=== PATIENT | female | born 1950 | race Caucasian/White ===

== ENCOUNTER → 2024-01-02 06:29 | Day surgery (SDC) | payer MEDICARE, OTHER, SELFPAY | LOC: GI 06:29 | PROVIDERS: ATTENDING PHYSICIAN Specialist; FAMILY PHYSICIAN Physician Assistant Medical | DX: Z12.11 Encounter for screening for malignant neoplasm of colon (principal); Z80.0 Family history of malignant neoplasm of digestive organs; K59.00 Constipation, unspecified; K57.30 Diverticulosis of large intestine without perforation or abscess without bleeding; K62.89 Other specified diseases of anus and rectum; D12.3 Benign neoplasm of transverse colon | CPT/HCPCS: 45380; 88305 ==

== ENCOUNTER → 2024-02-19 16:29 | Outpatient (REF) | payer MEDICARE, OTHER, SELFPAY | LOC: RAD 16:29 | PROVIDERS: ATTENDING PHYSICIAN Student in an Organized Health Care Education/Training Program; FAMILY PHYSICIAN Physician Assistant Medical | DX: R05.9 Cough, unspecified (principal) | CPT/HCPCS: 71046 ==

== ENCOUNTER → 2024-12-09 14:41 | Outpatient (REF) | payer MEDICARE, OTHER, SELFPAY ==
[2024-12-09 16:48] LABS: Creatine Phosphokinase 101 U/L (30-135); TSH 1.49 uIU/ml (0.47-4.68)
[2024-12-09 17:24] LABS: Folate 18.4 ng/ml (2.76-20); Vitamin B12 284 pg/ml (239-931)
[2024-12-11 16:12] LABS: Aldolase 3.4 U/L (1.2-7.6)
== END ==
LOC: REG 14:41
PROVIDERS: ATTENDING PHYSICIAN Specialist; FAMILY PHYSICIAN Physician Assistant Medical
DX: R53.1 Weakness (principal); D51.8 Other vitamin B12 deficiency anemias; R20.0 Anesthesia of skin; E03.9 Hypothyroidism, unspecified
CPT/HCPCS: 36415; 82085; 82550; 82607; 82746; 84155; 84165; 84439; 84443

== ENCOUNTER → 2024-12-26 14:33 | Outpatient (REF) | payer MEDICARE, OTHER, SELFPAY | LOC: RCS 14:33 | PROVIDERS: ATTENDING PHYSICIAN Student in an Organized Health Care Education/Training Program; FAMILY PHYSICIAN Physician Assistant Medical | DX: R06.02 Shortness of breath (principal) | CPT/HCPCS: 93306 ==

== ENCOUNTER → 2025-01-15 14:06 | Outpatient (REF) | payer MEDICARE, OTHER, SELFPAY ==
[2025-01-15 15:30] LABS: Albumin 4.3 g/dl (3.5-5.0)
[2025-01-15 15:38] LABS: Prealbumin (Transthyretin) 27.8 mg/dl (17.6-36.0)
[2025-01-18 03:00] LABS: Transferrin 258 mg/dL (200-360)
== END ==
LOC: REG 14:06
PROVIDERS: ATTENDING PHYSICIAN Orthopaedic Surgery Adult Reconstructive Orthopaedic Surgery; FAMILY PHYSICIAN Physician Assistant Medical
DX: Z01.818 Encounter for other preprocedural examination (principal); E61.1 Iron deficiency; D53.9 Nutritional anemia, unspecified
CPT/HCPCS: 36415; 82040; 84134; 84466

== ENCOUNTER → 2025-02-25 10:46 | Outpatient (REF) | payer MEDICARE, OTHER, SELFPAY ==
[2025-02-25 12:19] LABS: Blood Urea Nitrogen 19 mg/dl (7-17)
== END ==
LOC: REG 10:46
PROVIDERS: ATTENDING PHYSICIAN Specialist; FAMILY PHYSICIAN Physician Assistant Medical
DX: R20.0 Anesthesia of skin (principal); G12.23 Primary lateral sclerosis; R53.1 Weakness
CPT/HCPCS: 36415; 82565; 84520

== ENCOUNTER → 2025-06-03 12:33 | Outpatient (REF) | payer MEDICARE, OTHER, SELFPAY | LOC: WDC 12:33 | PROVIDERS: ATTENDING PHYSICIAN Physician Assistant Medical | DX: Z78.0 Asymptomatic menopausal state (principal); Z12.31 Encounter for screening mammogram for malignant neoplasm of breast | CPT/HCPCS: 77063; 77067; 77080 ==

== ENCOUNTER 2025-08-05 18:21 | Inpatient (IN) | payer MEDICARE, OTHER, SELFPAY ==
[2025-08-05] VITALS (8 sets, daily range): BP systolic 123–172; BP diastolic 60–92; PULSE 68–85; BMI 39.7
[2025-08-05 15:39] LABS: Hematocrit 34.5 % (37.0-47.0); Hemoglobin 11.7 g/dL (12.0-16.0); Mean Corp Hgb Conc. 33.9 g/dL (33.0-37.0); Mean Corpuscular Volume 89.6 fL (81.0-99.0); Nucleated Red Blood Cells % 0 %; Platelet Count 304 10^3/uL (130-400); Red Cell Dist. Width 13.8 % (11.5-14.5)
[2025-08-05 15:56] LABS: APTT 26.3 Sec (23.4-35.0); INR 1.03; PT 13.9 Sec (11.4-14.6)
[2025-08-05 15:59] LABS: ALT (SGPT) 27 U/L (0-35); AST (SGOT) 33 U/L (14-36); Albumin 3.7 g/dl (3.5-5.0); Alkaline Phosphatase 75 U/L (38-126); Blood Urea Nitrogen 13 mg/dl (7-17); Calcium 9.1 mg/dl (8.4-10.2); Carbon Dioxide 25 mmol/L (22-30); Chloride 105 mmol/L (98-107); Glucose 133 mg/dl (70-99); Potassium 4.1 mmol/L (3.5-5.1); Sodium 136 mmol/L (135-145); Total Protein 6.6 g/dl (6.3-8.2); eGFR > 60.00
--- NOTE | 2025-08-05 16:53 | ED.GENMED ---
History of Present Illness
<Cristiane Viramontes DEPUTY ASSESSOR - Last Filed: 08/06/25 01:32>
General
Chief Complaint: Rectal Bleeding
Source: patient and family (daughter at bedside)
Exam Limitations: none
Time Seen by Provider: 08/05/25 16:37
Nursing documentation reviewed up to this point in time: agreed with
History of Present Illness
History of Present Illness:
75-year-old individual with a history of mild anemia, hemorrhoids, HLD, recent left total knee arthroplasty at [facility], on ASA 81 mg BID, presenting with rectal bleeding that began today. The patient reports six episodes of rectal bleeding since this
morning, noting bright red blood with both wiping and toilet water. Denies abdominal pain. No associated symptoms of dizziness, lightheadedness, chest pain, or fever were reported. Pt did not want to come as she states she feels fine but daughter
insisted she come.
Knee is healing well with no problems
Review of Systems
<Cristiane Viramontes, DEPUTY ASSESSOR - Last Filed: 08/06/25 01:32>
Review of Systems
Allergies reviewed?: Yes
All Other Systems: ROS reviewed and negative except as documented in HPI and ROS
Phy Exam
<Cristiane Viramontes, DEPUTY ASSESSOR - Last Filed: 08/06/25 01:32>
Physical Exam
Physical Exam:
GENERAL: No acute distress. A&Ox3.
CONSTITUTIONAL: Afebrile.
EYES: clear, conjunctivae normal
ENMT: moist mucus membranes, Pharynx nl
RESPIRATORY: Regular respirations, nonlabored, lungs clear.
CARDIOVASCULAR: Regular rate and rhythm, no murmurs, no rubs.
GI: Soft, nontender, normal BS
Rectal: no stool in rectal vault. Small red alfie and mucus hematests neg. Multiple skin tags, One hemorrhoid mildly swollen and bluish pruple that appears thrombosed and may be what was bleeding.Rectal exam nontender.
MUSCULOSKELETAL: Left knee dressing and drain intact. Moves with ease, using walker to ambulate. Well perfused.
SKIN: Warm, dry, pink
PSYCH: Normal mood and affect. Well kept, interactive and appropriate
NEUROLOGIC: Awake, alert and oriented. No focal neurological deficits
Course
<Cristiane Viramontes, DEPUTY ASSESSOR - Last Filed: 08/06/25 01:32>
Orders/Labs/Results
Orders:
Orders
08/05/25 Breakfast
Clear Liquid
At Your Request: Full Participation
Does patient need a safe tray?: No
08/05/25 15:29
Type+Screen Urgent
Complete Blood Count/With Diff Urgent
Comprehensive Metabolic Panel Urgent
PTT Urgent
Prothrombin Time Urgent
08/05/25 18:06
Admit/Transfer Patient As Directed
Co-Sign Provider:
Level of Care: Inpatient admission
Assign to:: Medical/Surgical
Physician / Group: frankie echols
Diagnosis: rectal bleeding
Reason for Hospitalization: rectal bleeding
Expected length of stay greater than two midnights?: Yes
ELOS- Estimated Length of Stay in days: 3
I certify the patient meets the requirements for IP care: Yes
PRN Pain Medication Management As Directed
May give lesser potent ordered pain med per pt: Yes
preference::
Protocol:: Medication orders for pain may be administered in a
manner that supports deferring to patient preference
when the pt is:
- Requesting an ordered lesser potent pain medication.
Least to most potent pain medications are defined
as: acetaminophen < NSAID < tramadol < opioids
(morphine, oxycodone, hydromorphone).
- Requesting a lesser dose of the same medication IF
ORDERED.
- Requesting a less intrusive route of administration
if both routes are prescribed by the provider (PO <
IV).
08/05/25 18:07
Code Status As Directed
Resuscitation Status: Full Code
08/05/25 20:40
Pantoprazole [Protonix IV] 40 mg IV DAILY
08/05/25 20:40
GASTROINTESTINAL CONSULT Routine
Consulting Provider: Ludmila Abraham
Was physician already notified: Yes
Activity As Directed
Activity Level: As Tolerated
INT (Intravenous Needle Therapy) As Directed
Comment: Place 2 IV catheters of the largest bore possible until stable
Orthostatic Vital Signs As Directed
Orthostatic VS Frequency: Now
Comment: then every four hours for twenty-four hours
Pneumatic Compression Sleeves As Directed
Type: Thigh high
Vital Signs As Directed
Frequency: Per unit guidelines
DX Deep Vein Thrombosis Video Routine
08/05/25 22:03
H&H Q6H
08/06/25 02:40
H&H Q6H
08/06/25 06:00
Basic Metabolic Panel IN AM
Complete Blood Count/No Diff IN AM
08/06/25 08:40
H&H Q6H
08/06/25 14:40
H&H Q6H
Abnormal Lab Results
08/05/25
15:29
RBC 3.85 L 10^6/uL
(4.20-5.40)
Hgb 11.7 L g/dL
(12.0-16.0)
Hct 34.5 L %
(37.0-47.0)
Immature Gran % 0.6 H %
(0-0.5)
Lymphocytes % 19.4 L %
(20.5-51.1)
Glucose 133 H mg/dl
(70-99)
08/05/25 15:29
08/05/25 15:29
Vital Signs
Initial and Last Documented VS:
Initial Vital Signs
Temp Pulse Resp BP Pulse Ox
98.6 F 67 15 124/75 94
08/05/25 15:13 08/05/25 15:13 08/05/25 15:13 08/05/25 15:13 08/05/25 15:13
Last Documented Vital Signs
Temp Pulse Resp BP Pulse Ox
98.4 F 68 16 164/84 96
08/05/25 23:01 08/05/25 23:01 08/05/25 23:01 08/05/25 23:01 08/05/25 23:01
<Riky Edmond, DO - Last Filed: 08/05/25 18:29>
Orders/Labs/Results
Orders:
Orders
08/05/25 Breakfast
Clear Liquid
At Your Request: Full Participation
Does patient need a safe tray?: No
08/05/25 15:29
Type+Screen Urgent
Complete Blood Count/With Diff Urgent
Comprehensive Metabolic Panel Urgent
PTT Urgent
Prothrombin Time Urgent
08/05/25 18:06
Admit/Transfer Patient As Directed
Co-Sign Provider:
Level of Care: Inpatient admission
Assign to:: Medical/Surgical
Physician / Group: frankie echols
Diagnosis: rectal bleeding
Reason for Hospitalization: rectal bleeding
Expected length of stay greater than two midnights?: Yes
ELOS- Estimated Length of Stay in days: 3
I certify the patient meets the requirements for IP care: Yes
PRN Pain Medication Management As Directed
May give lesser potent ordered pain med per pt: Yes
preference::
Protocol:: Medication orders for pain may be administered in a
manner that supports deferring to patient preference
when the pt is:
- Requesting an ordered lesser potent pain medication.
Least to most potent pain medications are defined
as: acetaminophen < NSAID < tramadol < opioids
(morphine, oxycodone, hydromorphone).
- Requesting a lesser dose of the same medication IF
ORDERED.
- Requesting a less intrusive route of administration
if both routes are prescribed by the provider (PO <
IV).
08/05/25 18:07
Code Status As Directed
Resuscitation Status: Full Code
08/05/25 20:40
Pantoprazole [Protonix IV] 40 mg IV DAILY
08/05/25 20:40
GASTROINTESTINAL CONSULT Routine
Consulting Provider: Ludmila Abraham
Was physician already notified: Yes
Activity As Directed
Activity Level: As Tolerated
INT (Intravenous Needle Therapy) As Directed
Comment: Place 2 IV catheters of the largest bore possible until stable
Orthostatic Vital Signs As Directed
Orthostatic VS Frequency: Now
Comment: then every four hours for twenty-four hours
Pneumatic Compression Sleeves As Directed
Type: Thigh high
Vital Signs As Directed
Frequency: Per unit guidelines
DX Deep Vein Thrombosis Video Routine
08/05/25 22:03
H&H Q6H
08/06/25 02:40
H&H Q6H
08/06/25 06:00
Basic Metabolic Panel IN AM
Complete Blood Count/No Diff IN AM
08/06/25 08:40
H&H Q6H
08/06/25 14:40
H&H Q6H
Abnormal Lab Results
08/05/25
15:29
RBC 3.85 L 10^6/uL
(4.20-5.40)
Hgb 11.7 L g/dL
(12.0-16.0)
Hct 34.5 L %
(37.0-47.0)
Immature Gran % 0.6 H %
(0-0.5)
Lymphocytes % 19.4 L %
(20.5-51.1)
Glucose 133 H mg/dl
(70-99)
08/05/25 15:29
08/05/25 15:29
Vital Signs
Initial and Last Documented VS:
Initial Vital Signs
Temp Pulse Resp BP Pulse Ox
98.6 F 67 15 124/75 94
08/05/25 15:13 08/05/25 15:13 08/05/25 15:13 08/05/25 15:13 08/05/25 15:13
Last Documented Vital Signs
Temp Pulse Resp BP Pulse Ox
98.4 F 68 16 164/84 96
08/05/25 23:01 08/05/25 23:01 08/05/25 23:01 08/05/25 23:01 08/05/25 23:01
<Cristiane Viramontes, DEPUTY ASSESSOR - Last Filed: 08/06/25 01:32>
MDM/Problems Addressed
Differential Diagnosis Includes:
Hemorrhoids, bleeding diverticulum, anal fissure
MDM/Problems Addressed:
75-year-old individual with a history of mild anemia, hemorrhoids, HLD, recent left total knee arthroplasty at [facility], on ASA 81 mg BID, presenting with rectal bleeding that began today. The patient reports six episodes of rectal bleeding since this
morning, noting bright red blood with both wiping and toilet water. Denies abdominal pain. No associated symptoms of dizziness, lightheadedness, chest pain, or fever were reported. Pt did not want to come as she states she feels fine but daughter
insisted she come.
Knee is healing well with no problems
Afebrile, NAD
Rectal: minimal stool, one small red alfie, hematests neg. Pt does admit to eating red peppers recently.
5:15 p.m.
CBC: Hgb 11.7. ([facility] records on phone: Hgb 07/02: 14.1, 07/31: 13.0, post surgery 08/01: 11.5)
CMP: Unremarkable
PT/PTT WNL
Pt just had her 7th blood BM, considerable amount of dark red blood noted in container
Recheck rectal exam: heme positive mucus, no stool
Plan: Admit for serial Hgb, monitor bloody stools, GI consult if needed
Hospitalist notified of admission.
<Cristiane Viramontes, DEPUTY ASSESSOR - Last Filed: 08/06/25 01:32>
*Pulse Oximetry
SaO2: 94
Oxygen Mode of Delivery: Room air
Patient hypoxic: no
*Critical Care Note
Total Time (30-74mins, 75-104mins- exclusive of procedures): Not Applicable
ED Attending Note
<Cristiane Viramontes, DEPUTY ASSESSOR - Last Filed: 08/06/25 01:32>
-
Portions of this chart may have been created with voice recognition software.� Occasional wrong word or��sound alike� substitutions may have occurred due to the inherent limitations of voice recognition software.
<Riky Edmond, DO - Last Filed: 08/05/25 18:29>
ED Attending Note
Patient seen and examined by attending physician: Yes
I performed the substantive portion of visit, reviewed & personally made and approve the management plan that is documented in note by myself or TERRI.: Yes
ED Attending Note:
I have seen and evaluated the patient with a [id number] encounter. I have spoken to the advance practicer provider and involved in the medical history, the physical exam, medical decision making.
Evaluation and management service: agree unless noted differently below.
Results interpretation: agree unless noted differently below.
Focused HPI: 75-year-old female presenting with fatigue and lightheadedness and intermittent rectal bleeding. She does have a history of hemorrhoids and prior history of colonic polyps that were removed last year
Physical exam: Sitting in bed comfortably. No acute distress. Patient deferred rectal exam
Medical Decision Making: Given the intermittent rectal bleeding and the fatigue, will admit for hemoglobin trending and possible colorectal eval
Discharge Plan
Departure
Patient Disposition: Admit
Date of Disposition: 08/05/25
Time of Disposition: 17:27
Admit to: Med/Surg
Presentation/result/management discussed w/ accepting MD/DO: Hospitalist
Condition: Good
Discharge Problem:
Painless rectal bleeding
Interventions
Interventions:
*Risk Screen - Suicide Last Done: 08/05/25 15:13
*General Assessment Last Done: 08/05/25 15:13
*Neglect/Abuse Screening Last Done: 08/05/25 15:13
*ED- Fall Risk Assessment Last Done: 08/05/25 20:36
*ED COVID-19 Vaccine History Last Done: 08/05/25 21:34
*ED Influenza Vaccine History Last Done: 08/05/25 15:13
*Nursing Disposition Last Done: 08/05/25 20:36
IL-Pwdklj-Uagrtywhnp Assessment Last Done: 08/05/25 17:00
ED- Cardiac Assessment Last Done: 08/05/25 17:00
ED- Pulmonary Assessment Last Done: 08/05/25 17:00
Discharge Date and Time
Discharge Date/Time: 08/05/25 20:37
--- NOTE | 2025-08-05 17:39 | HPS.HSE ---
Family Physician
-
Family Physician: * NONE
Chief Complaint
-
rectal bleeding
History of Present Illness
75-year-old individual with a history of mild anemia, hemorrhoids, HLD, recent left total knee arthroplasty at [place], on ASA 81 mg BID and celebrex since July 30, presenting with rectal bleeding that began today around 2am. patient denied
abdominal pain. denied n/v. patient had multiple episodes of bloody bowel movement. denied NIELSON, dizzy or syncope.denied fever, chills, chest pain,sob. denied dysuria or hematuria.
her hgb on on 07/02 was 14.1, today her hgb is 11.7. admitting for further management.
Medical History
Past Medical History
Past Medical History: Reports Other
Additional Past Medical History:
Osteoarthritis, hemorrhoids, colon polyps,
Past Surgical History: Reports Other
Additional Past Surgical History:
Fistula repair
Social History
Tobacco: Non-smoker
Alcohol: None
Drug: None
Personal:
Living: With Family
Family History
Family History: Not pertinent
Allergies / Home Medications
Allergies reflects when Allergies were last updated in [employer]
Home Medications with original date entered in [employer].
Allergy/Medication List:
Allergies
Allergy/AdvReac Type Severity Reaction Status Date / Time
No Known Allergies Allergy Unverified 05/24/11 07:44
Home Medications
acetaminophen 325 mg tablet 325 mg PO DIRECTED 08/05/25
aspirin 81 mg tablet 81 mg PO BID 08/05/25
bisacodyl 10 mg rectal suppository 10 mg SD DAILY PRN constipation 08/05/25
celecoxib 200 mg capsule 200 mg PO BID 08/05/25
lansoprazole 30 mg capsule,delayed release 30 mg PO DAILY 08/05/25
polyethylene glycol 3350 17 gram oral powder packet (Miralax) 17 g PO DAILY 08/05/25
sennosides 8.6 mg capsule (senna) 17.2 mg PO BID 08/05/25
tirzepatide (weight loss) 5 mg/0.5 mL subcutaneous pen injector (Zepbound) 5 mg SC QWEEK 08/05/25
Review of Systems
-
Constitutional: Reports No Symptoms
EENT: Reports No Symptoms
Respiratory: Reports No Symptoms
Cardiac: Reports No Symptoms
Abdomen/GI: Reports Bloody Stools
: Reports No Symptoms
Musculoskeletal: Reports No Symptoms
Skin: Reports No Symptoms
Neurological: Reports No Symptoms
Endocrine: Reports No Symptoms
Hematologic/Lymphatic: Reports No Symptoms
Psych: Reports No Symptoms
Physical Exam
Vital Signs
Vital Signs
Temp Pulse Resp BP Pulse Ox
98.6 F 64 23 150/65 94
08/05/25 15:13 08/05/25 16:30 08/05/25 16:30 08/05/25 16:30 08/05/25 17:02
Physical Exam
General: Well Developed, Well Nourished and No Apparent Distress
HEENT: NormoCephalic, Moist mucous membranes and Atraumatic
Respiratory: Clear
Cardiac: S1/S2 and Regular Rhythm; No Murmur or Rub
GI: Soft, Non Tender, Non Distended and Normal Bowel Sounds; No Organomegaly
Rectal: Deferred by Provider
Musculoskeletal: No Clubbing, No Cyanosis and No Edema
Skin: No Rash
Neuro: AO x 3 and Nonfocal/grossly intact
Psych: Calm
Laboratory Results
-
08/05/25 15:29
08/05/25 15:29
Laboratory Results
PT 13.9 Sec (11.4-14.6) 08/05/25 15:29
INR 1.03 08/05/25 15:29
APTT 26.3 Sec (23.4-35.0) 08/05/25 15:29
Total Bilirubin 0.5 mg/dl (0.2-1.3) 08/05/25 15:29
AST 33 U/L (14-36) 08/05/25 15:29
ALT 27 U/L (0-35) 08/05/25 15:29
Alkaline Phosphatase 75 U/L (38-126) 08/05/25 15:29
Data Reviewed
-
Lab Data: Labs Reviewed by me
Impression/Plan
-
# Rectal bleeding likely from SHAHID II Inhibitors
#hxt of hemorrhoids
-Hemoglobin 11.7
- Hold aspirin,Celebrex
- Clear liquid diet
- IV PPI
- GI consult
- Heme positive mucus, no stool
- Colonoscopy in 2023 with 2 sessile polyps, which were removed. Diverticulosis in the sigmoid colon, in the descending colon and in the ascending colon.Nodule in the distal rectum.
#recent left total knee arthroplasty
#DVT Prophylaxis
-scd
#CODE status
-full code.
--- NOTE | 2025-08-05 18:23 | W.PN.UPDATE ---
Update Note
Progress Note Update
This note serves as an addendum to the H&P by technology lead Myke KAUFMAN�
HPI�
75F
PMHX: mild anemia, hemorrhoids, HLD, recent left total knee arthroplasty at [facility], on ASA 81 mg BID and Celebrex BID since July 30
- pw painless BRBPR around 2am.
- denied abdominal pain
- No N/V
- multiple episodes of hematochezia
- denied NIELSON, dizzy or syncope.denied fever, chills,
Interval Hgb dropped to 11.7, was 4.1 07/02
HD stable
Relevant VS
Temp Pulse Resp BP Pulse Ox
98.6 F 64 23 150/65 94
08/05/25 15:13 08/05/25 16:30 08/05/25 16:30 08/05/25 16:30 08/05/25 17:02
PE
Gen: NAD
HEENT: anicteric
Neck:supple
Lungs: CTA
Cor:RRRS1 S2
Abdomen: soft NT NG �
JUAN by ER: HoB POS mucus but no stool
MS: N o edema
Relevant Data
08/05/25
15:29
WBC 7.0
Hgb 11.7 L
Plt Count 304
INR 1.03
Sodium 136
Creatinine 0.6
eGFR > 60.00
NO PROR hospitalist admission:
ASSESSMENT & PLAN
Acute painless rectal bleeding DDX: Diverticulosis, hemorrhoids
- Risk for GIB due to ASA and SHAHID II inhibitor
- HX hemorrhoids
- Hemoglobin 11.7
- Hold aspirin,Celebrex
- Clear liquid diet
- IV PPI daily
- GI consult
HX Colonoscopy (2023) s/p 2 sessile polyps removed.
HX Diverticulosis in the sigmoid colon, in the descending colon and in the ascending colon. Nodule in the distal rectum.
Recent L TKA
DVT Px: SCD
Full code
IP MS
--- NOTE | 2025-08-05 20:45 | PTCARENOTE ---
Patient received from ED via stretcher. Patient walked into room using walker. Patient has her own portable woundvac from her left total knee arthroplasty. Patient AAOx3, vitals are stable, and has no complaints of pain. Oriented to room. Call bunch
within reach.
[2025-08-05 22:09] LABS: Hematocrit 34.2 % (37.0-47.0); Hemoglobin 11.5 g/dL (12.0-16.0)
[2025-08-05] MEDS: PROTONIX IV 40 MG IV (22:23)
[2025-08-05] MEDS: NSS (PRESERVATIVE FREE) 10 ML IV (22:24)
[2025-08-05] MEDS: TYLENOL 1000 MG PO (22:56)
[2025-08-06 03:20] VITALS: BP 110/80; BP 157/81; BP 160/77; PULSE 63; PULSE 67; PULSE 74
[2025-08-06 03:51] LABS: Hematocrit 35.0 % (37.0-47.0); Hemoglobin 11.8 g/dL (12.0-16.0)
[2025-08-06] MEDS: TYLENOL 650 MG PO ×2 (04:43→09:10)
[2025-08-06 07:35] VITALS: BP 158/82; BP 171/86; BP 173/93; PULSE 68; PULSE 69
--- NOTE | 2025-08-06 08:40 | CON.GI ---
Addendum entered and electronically signed by Cinthia Brewer MD 08/06/25 12:01:
I saw and examined the patient.
The BRICK OFFBEARER's note was reviewed and I agree with the note.
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 Fraire, colon polyps- tubular adenomas on
colonoscopy 12/[address] Cruz and also had a rectal nodule biopsied which was benign hyperplastic but was also seen by our nurse practitioner Ariela Guadalupe in the office in 2023 and was noted to have an anal lesion and was referred to
colorectal she saw Dr. Griffin and was recommended a biopsy in 2023 of the anal lesion to rule out recurrent anal papilloma or cancer but unfortunately had not followed. She says she had COVID after her colonoscopy which lasted for about 4 to 6 weeks
and did not really want to schedule any procedures at that time. She recently had a left knee replacement at [facility] and has been on aspirin 81 mg twice daily and Celebrex and had an episode of hard stool with straining and rectal bleeding yesterday
and came into the emergency room. She has not had any further bleeding since then. She recently also started taking MiraLAX and senna and her bowels had improved since has been off the oxycodone also.
Assessment and plan rectal bleeding most likely related to hemorrhoids precipitated by hard stools from recent opiates and surgery. She has been off the oxycodone encouraged her to use MiraLAX and Senokot daily. Hemoglobin remains stable. I told
her she can resume aspirin for DVT prophylaxis post knee replacement but hold off on Celebrex. less likely related to diverticulosis.
2. She also has a history of anal papilloma status post resection with grade [address] [place] [address] Fraire and also was noted to have recurrent anal lesion in 2023 and was also seen by colorectal surgery and recommended biopsy but
unfortunately patient has not followed up, strongly encouraged her to follow-up for the biopsy. also consulted colorectal surgery.
Since she has no further bleeding if tolerates diet can DC later today.
Original Note:
Consultation
-
Date/Time Consultation Requested: 08/05/252039
Date/Time Consultation Performed: 08/05/25 0800
Requesting Provider: BRIGITTE Matthews
Performing Provider: Dr. Brewer/BRIGITTE Ashley
Reason for Consultation: rectal bleeding
Medical History
Chief Complaint / HPI
Chief Complaint: rectal bleeding
History of Present Illness:
75-year-old female with past medical history of osteoarthritis, status post left total knee arthroplasty at [facility] last week on aspirin 81 mg twice daily and Celebrex since July 30, history of anal papillomatous growth with grade 2 dysplasia
(2010) status post excision by Dr. Kaur, anal fistula repair 2011, hemorrhoids, diverticulosis, tubular adenomas (last colonoscopy 01/02/2024) who presents to the emergency room with rectal bleeding. Asked to evaluate for the same. The patient
states that she had left knee replacement performed and was on aspirin as well as Celebrex. Prior to that she was on oxycodone. She developed constipation with no bowel movement followed by pebble-like stools. She started on senna and MiraLAX and
had straining. She then developed rectal bleeding initially with bright red blood upon straining and then eventually a gush. She states that there was a large amount of red blood in the toilet prompting her to come to the emergency room. She
denies any fevers, chills, nausea, vomiting, melena, dysphagia or dyne aphasia. No early satiety or unintended weight loss. She denies any chest pain, shortness of breath or dizziness. She had no further rectal bleeding. She did have a brown
bowel movement last night. On presentation WBC 7.0, hemoglobin currently 11.8 (previously 11.7), platelets 304, PT 13.9, INR 1.03, sodium 136, potassium 4.1, BUN 13, creatinine 0.6, glucose 133, total bilirubin 0.5, AST 33, ALT 27, alk phos 75
Past Medical History
Past Medical History: Other (Osteoarthritis, anal papilloma, colon polyps, diverticulosis)
Past Surgical History: Other (Left total knee replacement, anal fistula repair, anal papilloma excision)
Social History
Tobacco: Non-Smoker
Alcohol: None
Drug: None
Personal:
Living: With Family
Family History
Family History: Other (Mother with history of colon cancer, maternal aunt colon cancer, brother colon cancer, sister colon cancer)
Allergies / Home Medications
Allergy/AdvReac Type Severity Reaction Status Date / Time
No Known Allergies Allergy Unverified 05/24/11 07:44
�Medication �Instructions �Recorded
acetaminophen 325 mg tablet 325 mg PO DIRECTED Pain 08/05/25
aspirin 81 mg tablet 81 mg PO BID Blood Clot 08/05/25
Prevention/Tx
bisacodyl 10 mg rectal suppository 10 mg GA DAILY PRN constipation 08/05/25
celecoxib 200 mg capsule 200 mg PO BID INFLAMMATION 08/05/25
lansoprazole 30 mg capsule,delayed 30 mg PO DAILY GERD 08/05/25
release
polyethylene glycol 3350 17 gram 17 g PO DAILY Constipation 08/05/25
oral powder packet (Miralax)
sennosides 8.6 mg capsule (senna) 17.2 mg PO BID Constipation 08/05/25
tirzepatide (weight loss) 5 mg/0.5 5 mg SC QWEEK WEIGHT LOSS 08/05/25
mL subcutaneous pen injector
(Zepbound)
Review of Systems
-
All other systems: A 12 pt ROS was Negative except as stated above in HPI
Vital Signs
Temp Pulse Resp BP Pulse Ox
97.6 F 68 18 158/82 96
08/06/25 07:35 08/06/25 07:35 08/06/25 07:35 08/06/25 07:35 08/06/25 07:35
Physical Exam
Exam
General: No Apparent Distress
HEENT: Anicteric
Respiratory: Clear
Cardiac: Regular Rhythm
GI: Soft, Non Tender, Non Distended and Normal Bowel Sounds
Rectal: Hem Negative (Heme-negative in ER), Masses Palpated (Anal lesion palpable, irregular), Hemorrhoids (External hemorrhoid, no stigmata of bleeding, ) and Other (Yellow liquid stool, no obvious blood)
Skin: Warm and Dry
Neuro: AO x 3
Psych: Calm
Results
WBC 7.0 10^3/uL (4.8-10.8) 08/05/25 15:
Hgb 11.8 g/dL (12.0-16.0) L 08/06/25 03:27
Hct 35.0 % (37.0-47.0) L 08/06/25 03:27
MCV 89.6 fL (81.0-99.0) 08/05/25:
Plt Count 304 10^3/uL (130-400) 08/05/25:
Absolute Neuts (auto) 4.8 10^3/uL (1.4-6.5) 08/05/25 15:
PT 13.9 Sec (11.4-14.6) 08/05/25:
INR 1.03 08/05/25 15:
APTT 26.3 Sec (23.4-35.0) 08/05/25:
Sodium 136 mmol/L (135-145) 08/05/25
Potassium 4.1 mmol/L (3.5-5.1) 08/05/25:
Chloride 105 mmol/L (98-107) 08/05/25:
Carbon Dioxide 25 mmol/L (22-30) 08/05/25:
BUN 13 mg/dl (7-17) 08/05/25 15:
Creatinine 0.6 mg/dL (0.6-1.0) 08/05/25
Calcium 9.1 mg/dl (8.4-10.2) 08/05/25:29
Total Bilirubin 0.5 mg/dl (0.2-1.3) 08/05/25 15:29
AST 33 U/L (14-36) 08/05/25 15:29
ALT 27 U/L (0-35) 08/05/25 15:29
Alkaline Phosphatase 75 U/L (38-126) 08/05/25 15:29
Diagnostic Image Results:
none
Prior GI Procedures:
EGD: Never
Colonoscopy: 01/02/24 ([facility])
- Two diminutive polyps in the transverse colon and at
the hepatic flexure, removed with a jumbo cold
forceps. Resected and retrieved.
- Diverticulosis in the sigmoid colon, in the
descending colon and in the ascending colon.
- Nodule in the distal rectum. Biopsied.
2010 squamous papilla with high-grade dysplasia involving margin and dentate line 10 mm. Patient went to the OR with excision of papillomatous growth/hemorrhoidectomy with grade [address] Fraire.
Assessment / Plan
-
75-year-old female with past medical history of osteoarthritis, status post left total knee arthroplasty at [facility] last week on aspirin 81 mg twice daily and Celebrex since July 30, history of anal papillomatous growth with grade 2 dysplasia
(2010) status post excision by Dr. Kaur, anal fistula repair 2011, hemorrhoids, diverticulosis, tubular adenomas (last colonoscopy 01/02/2024) who presents to the emergency room with painless rectal bleeding. Asked to evaluate for the same. The
patient had painless rectal bleeding post constipation associated with narcotics. Bright red blood with a 'gush of red blood. Since that time no further bleeding. Stool was negative for occult blood in the ER. Had a brown stool since then.
Hemoglobin stable currently 11.8 up from 11.5. Denies any abdominal pain. Patient is up-to-date with colonoscopy. She had this performed 01/02/2024. She had 2 tubular adenomas and diverticulosis. She was sent to colorectal surgery prior to this
secondary to anal lesion identified. There were recommendations for surgery. The patient deferred at that time. Patient is tolerating clear liquids at present time. No concerns for upper GI bleeding.
Impression:
Painless rectal bleeding, likely hemorrhoidal, possible anal lesion, possible diverticular
History of anal lesion, patient needs to have follow-up with colorectal surgery-> will obtain consult now
Plan:
- Continue clear liquid diet, no reds. Most likely will be able to advance
- Continue bowel regimen for hard stools, discussed with patient
- Continue lansoprazole 30 mg daily for GI protection, was on aspirin 81 mg twice daily for DVT prophylaxis
- Colorectal surgery consultation for evaluation of anal lesion that patient was recommended to have surgery for in February 2024. Discussed with internal medicine attending and Dr. Reyes.
- If okay would be able to advance diet and if long as no further bleeding discharged to home.
-
-
Thank you for consultation and allowing me to participate in the patient's care. Please call the control systems designer GI physician during the after hours with any questions or concerns.
[2025-08-06] MEDS: NSS (PRESERVATIVE FREE) IV (08:49)
[2025-08-06] MEDS: PROTONIX IV IV (08:50)
[2025-08-06 08:51] LABS: Hematocrit 35.9 % (37.0-47.0); Hemoglobin 12.0 g/dL (12.0-16.0); Mean Corp Hgb Conc. 33.4 g/dL (33.0-37.0); Mean Corpuscular Volume 88.9 fL (81.0-99.0); Platelet Count 305 10^3/uL (130-400); Red Cell Dist. Width 14.0 % (11.5-14.5)
[2025-08-06 09:25] LABS: Blood Urea Nitrogen 11 mg/dl (7-17); Calcium 9.3 mg/dl (8.4-10.2); Carbon Dioxide 27 mmol/L (22-30); Chloride 104 mmol/L (98-107); Estimated Creatinine Clearance 87 ml/min; Glucose 100 mg/dl (70-99); Potassium 4.1 mmol/L (3.5-5.1); Sodium 136 mmol/L (135-145); eGFR > 60.00
--- NOTE | 2025-08-06 10:08 | W.PN.HOSP.TC ---
Today's Communication/Plan
-
Stable for d/c
Assessment / Plan
Assessment / Plan
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 She was started on ASA BID after her surgery on Jul by in [facility].
Patient also has a Hx of small nodule in distal rectum found in 2023, with atypical cells, however no further mgmt elected at that time. Nodule still persists and GI concerned that it can be a source for bleeding. ColorectalSx contacted and avised
close follow up as outpatient with that patient is familiar with. Referral to be provided. H&H stable, bleeding subsided. Attempting to get in touch with to discuss further postOP DVT ppx
A/P:
#LGIB cannot exclude 2/2 rectal lesion
subsided without significant anemia
GI followed: no further plans, can advance diet
PPI to continue
avoid NSAIDs, antiplatelets and anticoagulation
discuss further DVT ppx with patients ortho
Colorectal as outpatient LUANNE: Office will arrange appointment as per communication with
#L knee surgery
Discussed with Kaycee REYES working with - agreeable to change to daily ASA for DVT ppx in view of LGIB. ALso encouraged ambulation
L knee drain sealing is poor and as per her recommendations - drain removed. No overt signs of infection. Dressing applied and patient to follow with office next week
#Obesity with BMI 39.7
#GERD
#DJD
cont home meds
DVTb ppx SCDs
Full code
I have spent at least 85min reviewing chart, test results, communication with consult and providing direct patient care
Anticipated Discharge: Within 24 hours
Subjective/Interval History
-
Date of Service: August 06, 2025
Objective Data
-
Labs:
Laboratory Results
08/05/25 08/06/25 08/06/25
22:03 03:27 08:38
WBC 6.6
Hgb 11.5 L 11.8 L 12.0
Hct 34.2 L 35.0 L 35.9 L
Plt Count 305
Sodium 136
Potassium 4.1
Chloride 104
Carbon Dioxide 27
BUN 11
Creatinine 0.6
Glucose 100 H
Calcium 9.3
08/06/25 08/06/25
08:40 14:40
WBC
Hgb Cancelled Pending
Hct Cancelled Pending
Plt Count
Sodium
Potassium
Chloride
Carbon Dioxide
BUN
Creatinine
Glucose
Calcium
Vital Signs:
Vital Signs
Temp Pulse Resp BP Pulse Ox
97.6 F 68 18 158/82 96
08/06/25 07:35 08/06/25 07:35 08/06/25 07:35 08/06/25 07:35 08/06/25 07:35
I&O
08/05/25 08/06/25 08/07/25
06:59 06:59 06:59
Intake Total 960 / 960
Balance 960 / 960
[2025-08-06 11:24] VITALS: BP 141/65; BP 146/102; BP 154/67; PULSE 61; PULSE 72; PULSE 82
--- NOTE | 2025-08-06 12:52 | W.DCSUMMARY ---
Discharge Summary
Discharge Data
Date of Admission: 08/05/25
Date of Discharge: 08/06/25
-
Pending Results: No
Hospital Course
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 She was started on ASA BID after her surgery on Jul by in [facility].
Patient also has a Hx of small nodule in distal rectum found in 2023, with atypical cells, however no further mgmt elected at that time. Nodule still persists and GI concerned that it can be a source for bleeding. ColorectalSx contacted and avised
close follow up as outpatient with that patient is familiar with. Referral to be provided. H&H stable, bleeding subsided. Discussed with Kaycee REYES working with - agreeable to change to daily ASA for DVT ppx in view of LGIB.
ALso encouraged ambulation. L knee drain sealing is poor and as per Ortho recommendations over the phone - drain dressing removed and clean dressing applied over the resection site. No overt signs of infection. Dressing applied and patient to follow
with office next week
I have spent at least 85min reviewing chart, test results, communication with consult and providing direct patient care
Patient was managed for:
#LGIB cannot exclude 2/2 rectal lesion
#L knee surgery
#Obesity with BMI 39.7
#GERD
#DJD
Discharge Plan
-
Patient Disposition: Home (Routine Discharge)
Discharge Diagnosis/Procedures: Lower GIB
Diet: Low Cholesterol
Activity: As tolerated
Referrals:
Tanesha Richards PA-C [Family Provider, Family Practice]
Brody Griffin MD [Active, ColoRectal] - in one to two weeks
Referral Note: for rectal lesion
Prescriptions:
Continued
acetaminophen 325 mg Tablet
325 mg PO DIRECTED
Rx Instructions:
take 3 tablets in the morning, 3 tablest at noon and 3 tablets at bedtime
polyethylene glycol 3350 [Miralax] 17 gram Powder In Packet
17 g PO DAILY
bisacodyl 10 mg Suppository
10 mg NM DAILY PRN (Reason: constipation)
lansoprazole 30 mg capsule,delayed release(DR/EC)
30 mg PO DAILY
senna 8.6 mg Capsule
17.2 mg PO BID
Zepbound 5 mg/0.5 mL Pen Injector
5 mg SC QWEEK
Changed
aspirin 81 mg Tablet
81 mg PO DAILY Qty: 0 0RF
Discontinued
celecoxib 200 mg capsule
200 mg PO BID
Discharge Orders:
Discharge Patient (As Directed); Ordered 08/06/25
Ordered By: Epifanio Lance
Discharge Date and Time
Print Language: WELSH
--- NOTE | 2025-08-06 13:34 | PTCARENOTE ---
Patient for discharge. Discharge instructions reviewed with patient, by this RN. IV removed. Surgical site redressed. Edges approximated with no drainage. Portable wound vac discontinued, per [facility], in the city. Patient awaiting 's
arrival to pick uo for discharge to home. Transport will be utilized to wheel patient down.
--- NOTE | 2025-08-06 13:57 | CM ---
Met with patient at bedside
Pharmacy verified: [facility] @ [address] [place] [address]
IMM benefit explained; form signed @ 1350
Lives w/ ; multilevel home; 1 step to enter via back door; 15 steps between floors; 1st floor set up w/ full bath and converted room for bedroom
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
No SNF utilization; recent home health with [facility] and will resume home PT
will transport home
Plan: Discharge to home with resumption of home health services
== END 2025-08-06 14:33 | disposition home health service (06) | DRG 378 ==
LOC: 4 WEST ACU 18:21
PROVIDERS: Registered Nurse; ADMITTING PHYSICIAN Internal Medicine; ATTENDING PHYSICIAN Internal Medicine; EMERGENCY PHYSICIAN Student in an Organized Health Care Education/Training Program; FAMILY PHYSICIAN Physician Assistant Medical; OTHER PHYSICIAN Internal Medicine Gastroenterology
DX: K92.1 Melena (principal); D68.32 Hemorrhagic disorder due to extrinsic circulating anticoagulants; E78.5 Hyperlipidemia, unspecified; K57.30 Diverticulosis of large intestine without perforation or abscess without bleeding; K64.9 Unspecified hemorrhoids; E66.9 Obesity, unspecified; Z68.39 Body mass index [BMI] 39.0-39.9, adult; K21.9 Gastro-esophageal reflux disease without esophagitis; M19.90 Unspecified osteoarthritis, unspecified site; Z96.652 Presence of left artificial knee joint; Z79.82 Long term (current) use of aspirin; Z79.899 Other long term (current) drug therapy
CPT/HCPCS: 80048; 80053; 85014; 85018; 85025; 85027; 85610; 85730; 86850; 86900; 86901; 87070; 97163; 99284

== ENCOUNTER → 2025-08-13 11:20 | Outpatient (REF) | payer MEDICARE, OTHER, SELFPAY | LOC: RAD 11:20 | PROVIDERS: ATTENDING PHYSICIAN Physician Assistant; FAMILY PHYSICIAN Physician Assistant Medical | DX: M17.12 Unilateral primary osteoarthritis, left knee (principal); Z96.652 Presence of left artificial knee joint | CPT/HCPCS: 93970 ==